=== PATIENT | female | born 1945 | race Caucasian/White ===

== ENCOUNTER 2017-10-07 22:33 | Inpatient (IN) | payer OTHER ==
[~2017-10-07] VITALS: Ht 149.9 cm; Wt 90.6 kg
[~2017-10-07 22:33] MED LIST: ARTHROTEC 751 TABLET PO; AVALIDE 300-251 EACH PO; CLARITIN10 M3 PO; CYMBALTA60 MG PO; ECOTRIN325 MG PO; ENABLEX7.5 MG PO; HYDROCHLOROTHIA25 MG PO; HYZAAR 100-21 TABLET PO; LIPITOR40 MG PO; MOVE FREE1 CAPSULE PO; NEURONTIN600 MG PO; NEXIUM40 MG PO; ROBAXIN500 MG PO; TENORMIN25 MG PO; ULTRAM50 MG PO; ZANTAC150 MG PO
[2017-11-03] MEDS ORDERED: KLOR-CON M2020 MEQ PO (15:17)
[2017-11-05 07:47] VITALS: BP 130/60
[2017-11-05 13:00] VITALS: BP 108/62
[2017-11-05 14:00] VITALS: BP 100/56
[2017-11-05 15:00] VITALS: BP 87/49
[2017-11-05 20:00] VITALS: BP 96/50
[2017-11-06] VITALS: BP 98/60
[2017-11-06 04:00] VITALS: BP 103/60
[2017-11-06 07:55] VITALS: BP 116/67
== END 2017-11-06 10:55 | disposition home or self-care (01) | DRG 38 ==
LOC: ENRESERV 22:33 → CANRESERV 22:33 → ENRESERV 22:35 → CANRESERV 22:35 → 2SOUTH 10-08 09:20 → ENRESERV 11-04 21:45 → CANRESERV 11-04 21:45 → 2SOUTH 11-05 07:28 → 4WEST 11-05 07:28 → ENRESERV 11-05 12:32 → 4WEST 11-05 13:04 → 2SOUTH 11-05 14:16 → 4WEST 11-05 19:25 → ENRESERV 11-06 04:57 → 4WEST 11-06 10:55
DX: I65.22 Occlusion and stenosis of left carotid artery (principal); I10 Essential (primary) hypertension; E78.2 Mixed hyperlipidemia; K21.9 Gastro-esophageal reflux disease without esophagitis; M19.90 Unspecified osteoarthritis, unspecified site; Z96.651 Presence of right artificial knee joint; E66.01 Morbid (severe) obesity due to excess calories; Z68.41 Body mass index [BMI] 40.0-44.9, adult; Z79.82 Long term (current) use of aspirin; Z87.891 Personal history of nicotine dependence
CPT/HCPCS: 87641; 93005; J0690; J1100; J1170; J1644; J1650; J2405; J2720; J2795; J3010; J7120; S0020

== ENCOUNTER → 2017-12-22 | Outpatient (CLI) | payer MEDICARE, OTHER ==
[~2017-12-22] MED LIST changes: +KLOR-CON M2020 MEQ PO
== END | disposition home or self-care (01) ==
LOC: CDC 14:03
DX: Z01.810 Encounter for preprocedural cardiovascular examination (principal); R94.31 Abnormal electrocardiogram [ECG] [EKG]
CPT/HCPCS: 93000

== ENCOUNTER 2017-12-30 20:21 | Inpatient (IN) | payer OTHER ==
[~2017-12-30] VITALS: Ht 147.3 cm; Wt 91.6 kg
[2017-12-31] VITALS (7 sets, daily range): BP systolic 113–153; BP diastolic 50–72
[2018-01-01] VITALS (27 sets, daily range): BP systolic 83–176; BP diastolic 39–150
[2018-01-02] VITALS (12 sets, daily range): BP systolic 109–195; BP diastolic 54–85
== END 2018-01-02 10:37 | disposition home or self-care (01) | DRG 39 ==
LOC: 2SOUTH → CANRESERV 20:21 → ENRESERV 20:21 → 2SOUTH 12-31 07:22 → 4WEST 12-31 07:22 → 2SOUTH 12-31 14:31 → ENRESERVTM 12-31 21:19 → ENRESERVDT 12-31 21:19 → ENRESERV 12-31 21:19 → 4WEST 12-31 21:37
DX: I65.23 Occlusion and stenosis of bilateral carotid arteries (principal); I89.9 Noninfective disorder of lymphatic vessels and lymph nodes, unspecified; J45.909 Unspecified asthma, uncomplicated; I10 Essential (primary) hypertension; G43.909 Migraine, unspecified, not intractable, without status migrainosus; K21.9 Gastro-esophageal reflux disease without esophagitis; Z87.891 Personal history of nicotine dependence; Z79.82 Long term (current) use of aspirin; Z88.5 Allergy status to narcotic agent; Z88.6 Allergy status to analgesic agent
CPT/HCPCS: 70450; 87641; 88305; 93005; 94799; C1768; J0131; J0690; J1170; J1644; J1650; J2250; J2370; J2405; J2720; J3010; J7050; J7120